=== PATIENT | female | born 1985 | race Caucasian/White ===

== ENCOUNTER 2016-05-26 12:00 | Inpatient (IN) | payer BC ==
[~2016-05-26] VITALS: Ht 160 cm; Wt 67.4 kg
[~2016-05-26 12:00] MED LIST changes: -ALLERGY SHOT SQ; -BENTYL-DPS20 MG PO; -DELTASONE DPS20 MG PO; -EPIPEN JR0.15 MG/0. SQ; -FLAGYL-DPS500 MG PO; -PEPCID DPS20 MG PO; -ZOFRAN4 MG PO
[2016-05-31] MEDS ORDERED: EPIPEN JR0.15 MG/0. SQ (06:48)
[2016-05-31] MEDS ORDERED: ALLERGY SHOT SQ (06:49)
[2016-05-31] MEDS ORDERED: FLAGYL-DPS500 MG PO (06:49)
[2016-05-31] MEDS ORDERED: BENTYL-DPS20 MG PO (06:50)
[2016-05-31] MEDS ORDERED: ZOFRAN4 MG PO (06:50)
[2016-05-31] MEDS ORDERED: PEPCID DPS20 MG PO (06:50)
[2016-05-31] MEDS ORDERED: DELTASONE DPS20 MG PO (06:51)
--- NOTE | 2016-05-31 08:09 | HP ---
ADMIT: 05/26/2016 RM/LOC: 629 [id number] [id number] 26[address] [facility] [address] [place], [place] [address] YANELIS LAINEZ [address] [place] [address] History and Physical SEX: F AGE: 31 : 1985 DATE OF SERVICE: REASON FOR ADMISSION: Abdominal pain. HISTORY OF PRESENT ILLNESS: Yanelis is a well-known patient of mine, who is a 31-year-old, white female, who has 2 small children at home. She developed abdominal pain and abdominal discomfort approximately 4 days after starting a vinegar and cider weight loss cleanse. She developed some mild nausea, then developed severe abdominal pain and abdominal discomfort with bloody diarrhea. This has been ongoing for approximately a week. She presents to the office for further assessment of severe abdominal pain. She has had no fever that she is aware of. She is very thirsty. She has had no complaints of lightheadedness or dizziness. She, at this time, has severe periumbilical pain as well as recurrent episodes of bloody diarrhea. PAST MEDICAL HISTORY: Includes history of gastritis, history of duodenitis, history of colitis, history of pyelonephritis approximately 10 years ago, history of hypothyroidism. She has had child births without any complications. History of multiple drug allergies to antibiotics. Recent history of aphthous ulcers, was seen and evaluated by a sash sticker in [place] and was started on zinc with resolution. History of asthmatic bronchitis. SOCIAL HISTORY: She is . Minimal alcohol use. No tobacco. ALLERGIES: TO ERYTHROMYCIN, RASH; KEFLEX, FACIAL SWELLING; PENICILLIN, RASH; SULFA, RASH; SEASONAL ALLERGIES. CURRENT MEDICATIONS: 1. Levothyroxine 50 mcg daily. 2. vitamin. 3. Zinc 10 mg daily. 4. Zyrtec 10 mg daily. REVIEW OF SYSTEMS: She has been well up until starting this cleanse. She has not had any blood in her stool, black stool, or any diarrhea prior to this time. No abdominal pain. She has had no fever or chills. She does have some anorexia has nausea but is not vomited. She does not have any significant indigestion or epigastric discomfort, does have periumbilical pain which is severe in nature. Abdominal discomfort with evidence of blood in her stool. PHYSICAL EXAMINATION: GENERAL: She is alert, articulate, in pain. Mucus membranes are dry. VITAL SIGNS: Her blood pressure is 82/62, pulse is 96, temperature is 98.1. HEENT: Normal. HEART: Regular rhythm. LUNGS: Clear, but diminished to auscultation. She has diffuse abdominal pain. No guarding or rebound. ADMIT: 05/26/2016 RM/LOC: 629 [facility] MR#: [id number] [address] [address] [place] [address] History and Physical SEX: F AGE: 31 : 1985 EXTREMITIES: No evidence of edema. ASSESSMENT: Admission of a 31-year-old, white female, who took a weight loss cleanse, which included vinegar and apple cider with development of severe diarrhea illness with resultant bloody stools. Concerns about inflammatory colitis and dehydration. We, at this time, will admit to [facility] for hydration. We will do CT scan of her abdomen and pelvis. Appropriate laboratory assessment was performed. We, earlier, have set her up prior to coming to see me. She has stool studies which are pending. We will place her on Pepcid to take twice a day IV. In addition, close assessment of her lab as well as ask Surgical consultation. We will continue to follow closely. Swapna Burkett MD/ jennie JOB #: [id number] CC: Swapna Burkett, Attending Physician Swapna Burkett, Family Physician
--- NOTE | 2016-06-09 08:02 | DS ---
ADMIT: 05/26/2016 RM/LOC: 629 [facility] MR#: [id number] [address] [facility] [address] [place], [place] [address] YANELIS LAINEZ [address] [place] [address] General Discharge Summary SEX: F AGE: 31 : 1985 ADMISSION DATE: 05/26/2016 DISCHARGE DATE: 05/30/2016 DISCHARGE DIAGNOSES: 1. Significant abdominal pain and abdominal discomfort. 2. Evidence of colonic colitis. 3. Dehydration. HISTORY OF PRESENT ILLNESS: Well documented in her H and P. LABORATORY AND X-RAY DATA: Her laboratory and radiographic assessment is as follows. On admission, white count was 9.4, hemoglobin of 14.4, hematocrit of 43.1. Urinalysis showed no evidence of abnormalities, 4+ ketones. Her sodium is 136, potassium 4.0, BUN and creatinine 13 and 1.0. Her influenza serology was negative. CT abdomen and pelvis showed colon wall thickening and enhancement, questionable colitis or inflammatory bowel disease with right hepatic lobe 1.2 cm cyst. HOSPITAL COURSE: Yanelis was admitted to [facility] after being seen and evaluated in the clinic. She was in severe abdominal pain and abdominal discomfort. She has undertaken a vinegar and cider weight loss cleanse, which then within 4 to 5 days, she developed this abdominal pain and abdominal discomfort. She was admitted secondary to pain management as well as 16 pounds of weight loss with severe dehydration. On admission, she was resuscitated with normal saline and initiated on pain management with a ROTO GRAVURE PRESS OPERATOR pump. CT of the abdomen and pelvis was performed. I did ask Surgery to see and assist in her care. She was seen kindly by Dr. Wilkinson. He felt that she needed further assessment with colonoscopy. As she had persistent pain and discomfort, she wanted to wait on this. As she was hemodynamically stable, we felt that this was okay. Her white count remained within normal limits. We had improved pain management. We had done stool specimens as an outpatient, they all were negative. She subsequently was placed on Solu-Medrol as well as Flagyl. She had significant improvement and was subsequently discharged home ADMIT: 05/26/2016 RM/LOC: 629 [facility] MR#: [id number] [address] [facility] [address] [place], [place] [address] YANELIS LAINEZ [facility] [place] [address] General Discharge Summary SEX: F AGE: 31 : 1985 DISCHARGE MEDICATIONS: At the time of her discharge home, we will continue with; 1. vitamins. 2. Synthroid 0.05 mg daily. 3. Zyrtec. 4. Flagyl 500 mg p.o. t.i.d. for 10 days. 5. Pepcid 20 mg p.o. [id number] b.i.d. 6. Prednisone 20 mg p.o. b.i.d. DISCHARGE INSTRUCTIONS: She will follow with Dr. Hammonds this week and then will follow up with me in 7 to 10 days, and we will start to titrate her off her steroids. At discharge, her clinical condition was stable. Swapna Burkett MD/ jennie JOB #: [id number] CC: Swapna Burkett MD, Attending Physician Swapna Burkett MD, Family Physician
--- NOTE | 2016-06-29 10:33 | CO ---
ADMIT: 05/26/2016 RM/LOC: 629 [facility] MR#: [id number] [address] [facility] [address] [place], [place] [address] FAITH LAINEZ [address] [place] [address] Consultation SEX: F AGE: 31 : 1985 DATE OF CONSULTATION: 05/26/2016 ATTENDING PHYSICIAN: Swapna Burkett CONSULTING PHYSICIAN: Pio Wilkinson MD ADDENDUM: CHIEF COMPLAINT: Bloody stools. HISTORY OF PRESENT ILLNESS: This is a very pleasant patient of Dr. Swapna Burkett, who has had about 6 or 7-day history of bloody diarrhea and dehydration. She says this started when she tried an apple cider vinegar cleanse. She had a CT scan done today, which shows some mild colitis, mild inflammation of her colon; and all of her stool studies thus far been normal as her blood work. On exam, she is pretty uncomfortable throughout, particularly in the left lower quadrant. No guarding at this time. No masses are appreciated. ASSESSMENT: Bloody diarrhea with evidence of colitis on CT scan. PLAN: I have recommended proceeding with colonoscopy. We will plan on doing this for tomorrow. I have gone through risks and benefits of this procedure in depth with the patient. She does understand all this and agrees to proceed. Pio Wilkinson MD/ jennie JOB #: [id number] CC: Swapna Burkett, Attending Physician Swapna Burkett, Family Physician
--- NOTE | 2016-06-29 10:33 | CO ---
ADMIT: 05/26/2016 RM/LOC: 629 [facility] MR#: [id number] 26[address] [facility] [address] [place], [place] [address] FAITH LAINEZ [address] [place] [address] Consultation SEX: F AGE: 31 : 1985 DATE OF CONSULTATION: 05/26/2016 ATTENDING PHYSICIAN: Swapna Burkett CONSULTING PHYSICIAN: Pio Wilkinson MD REASON FOR CONSULTATION: Persistent abdominal pain with bloody diarrhea. HISTORY OF PRESENT ILLNESS: Faith is a very pleasant 31-year-old female, who started developing abdominal pain with bloody diarrhea since Monday, so approximately 6 days ago. She denies ever having any events like this prior. Her pain is diffuse throughout her abdomen with the most pain at the suprapubic region. She believes her symptoms started from starting an apple cider vinegar cleanse. She denies any nausea, emesis, constipation, or dark stools. She did run a fever on Monday, so approximately 4 days ago. PAST MEDICAL HISTORY: Significant for gastroparesis, recurrent nephritis, hypothyroidism, and seasonal allergies. PAST SURGICAL HISTORY: 1. Cholecystectomy in 2006. 2. Tonsillectomy. ALLERGIES: PENICILLIN, SULFA, ERYTHROMYCIN, CLINDAMYCIN, AND KEFLEX. MEDICATIONS: Well documented in chart. FAMILY HISTORY: Mom has a positive history of irritable bowel syndrome. SOCIAL HISTORY: The patient denies any tobacco, alcohol, or illicit drug use. REVIEW OF SYSTEMS: CONSTITUTIONAL: The patient states some fevers about four days ago, but denies any chills or night sweats. The rest of the comprehensive 10-point review of systems was performed and all other systems are negative. PHYSICAL EXAMINATION: GENERAL: The patient is in no acute distress. She is alert and oriented. HEENT: Head is normocephalic and atraumatic. EOMS are intact. Conjunctivae are free of icterus, erythema, or pallor. Pinnae, free of deformities. Nose, midline. No tracheal deviation. NECK: Supple. SKIN: Negative for jaundice, clubbing, edema, pallor, or cyanosis. LUNGS: Clear to auscultation bilaterally. Normal respiratory effort. HEART: Distal pulses are intact. Regular rate and rhythm. ABDOMEN: Soft and nondistended. Tender and diffuse throughout the abdomen with exquisite tenderness noted in the suprapubic region. NEURO: Grossly intact. ADMIT: 05/26/2016 RM/LOC: 629 [facility] MR#: [id number] [address] [address] FAITH LAINEZ [facility] [place] [address] Consultation SEX: F AGE: 31 : 1985 LABORATORY DATA: White blood cell count 9.4. DIAGNOSTIC IMAGING: CT of abdomen and pelvis is pending. ASSESSMENT: Abdominal pain, question colitis. PLAN: So far, we will base our therapy of the CT scan results when they are complete. I suspect that we might have to start her on IV antibiotic therapy for questionable colitis and further culture her stool. C diff is negative at this time. We will see what the x-ray shows. The patient is in agreement of this plan. All of her questions were answered and she would like to proceed. Thanks for the consultation of this patient. GERALDINE Butcher / Pio Wilkinson MD / jennie JOB #: [id number] CC: Swapna Burkett, Attending Physician Swapna Burkett, Family Physician
== END 2016-05-30 13:00 | disposition home or self-care (01) | DRG 392 ==
LOC: 6PED 12:00
PROVIDERS: ADMIT Internal Medicine
DX: K52.9 Noninfective gastroenteritis and colitis, unspecified (principal); K31.84 Gastroparesis; K92.1 Melena; E03.9 Hypothyroidism, unspecified; J45.909 Unspecified asthma, uncomplicated; E86.0 Dehydration

== ENCOUNTER → 2016-05-26 | Outpatient (CLI) | payer BC ==
[~2016-05-26] MED LIST: ALLERGY SHOT SQ; BENTYL-DPS20 MG PO; CULTURELLE1 CAP PO; DELTASONE DPS20 MG PO; EPIPEN JR0.15 MG/0. SQ; FLAGYL-DPS500 MG PO; NIPPLECREAM TP; PEPCID DPS20 MG PO; PRENATAL VIT1 TAB PO; SYNTHROID50 MCG PO; TYLENOL EXTRA500 M1 PO; ZOFRAN4 MG PO; ZYRTEC DPS10 MG PO
== END | disposition home or self-care (01) ==
LOC: PTH.S 09:00
DX: R19.7 Diarrhea, unspecified (principal)

== ENCOUNTER → 2016-08-02 | Outpatient (CLI) | payer BC ==
[~2016-08-02] MED LIST changes: +ALLERGY SHOT SQ; +BENTYL-DPS20 MG PO; +DELTASONE DPS20 MG PO; +EPIPEN JR0.15 MG/0. SQ; +FLAGYL-DPS500 MG PO; +PEPCID DPS20 MG PO; +ZOFRAN4 MG PO
== END | disposition home or self-care (01) ==
LOC: PTH.S 08:15
DX: R74.8 Abnormal levels of other serum enzymes (principal); K50.90 Crohn's disease, unspecified, without complications

== ENCOUNTER → 2016-11-30 | Outpatient (CLI) | payer BC | END | disposition home or self-care (01) | LOC: PTH.S 09:38 | DX: K50.90 Crohn's disease, unspecified, without complications (principal); D50.9 Iron deficiency anemia, unspecified ==